=== PATIENT | female | born 1990 | race Caucasian/White ===

== ENCOUNTER → 2017-02-21 | Outpatient (REF) | payer OTHER ==
[~2017-02-21] MED LIST: BENA25CA2 PO; CIPR500S PO; DULO30CA OR; MELO15TA4 PO; PERCOCET PO; SENO8.6T10 PO; TRAZPOW OR; birth control pill OR; gabapentin OR; oxybutynin OR
[2017-02-21 13:22] LABS: BASO % 0.3 % (0.0-1.0); EOS # 0.1 K/mm3 (0.0-0.50); EOS % 2.1 % (0.0-3.0); LARGE UNSTAINED CELL # 0.1 K/mm3 (0.0-0.4); LARGE UNSTAINED CELL % 2.1 % (0.0-4.0); LYMPH # 1.8 K/mm3 (1.5-6.5); MEAN CORPUSCULAR HEMOGLOBIN 29.2 pg (27.0-33.0); MEAN CORPUSCULAR HGB CONC 32.4 g/dl (32.0-36.5); MEAN CORPUSCULAR VOLUME 90.1 fl (80.0-96.0); MONO # 0.3 K/mm3 (0.0-0.8); MONO % 6.5 % (0.0-5.0); NEUTROPHILS # 2.7 K/mm3 (1.8-7.7); NEUTROPHILS % 55.1 % (36.0-66.0); PLATELET COUNT, AUTOMATED 221 k/mm3 (150-450); RED CELL DISTRIBUTION WIDTH 12.4 % (11.5-14.5)
[2017-02-21 13:53] LABS: ALBUMIN 3.3 GM/DL (3.2-5.2); ALBUMIN/GLOBULIN RATIO 1.27 (1.00-1.93); ALKALINE PHOSPHATASE 66 U/L (45-117); ALT/SGPT 16 U/L (12-78); ANION GAP 8 MEQ/L (8-16); AST/SGOT 10 U/L (15-37); BILIRUBIN,TOTAL 0.3 MG/DL (0.2-1.0); BLOOD UREA NITROGEN 11 MG/DL (7-18); CALCIUM LEVEL 9.1 MG/DL (8.5-10.1); CARBON DIOXIDE LEVEL 27 MEQ/L (21-32); CHLORIDE LEVEL 107 MEQ/L (98-107); CHOLESTEROL LEVEL 177 MG/DL (<200); CREATININE FOR GFR 0.68 MG/DL (0.55-1.02); FREE T4 1.02 NG/DL (0.76-1.46); GLOMERULAR FILTRATION RATE > 60.0 (>60); GLUCOSE, FASTING 83 MG/DL (70-105); POTASSIUM SERUM 3.8 MEQ/L (3.5-5.1); SODIUM LEVEL 142 MEQ/L (136-145); TOTAL PROTEIN 5.9 GM/DL (6.4-8.2); TRIGLYCERIDES LEVEL 179 MG/DL (<150)
== END ==
LOC: M SFHCPLAZ 11:06
PROVIDERS: ATTEND Physician Assistant Medical
DX: M51.36 Other intervertebral disc degeneration, lumbar region (principal); F34.1 Dysthymic disorder; E66.9 Obesity, unspecified

== ENCOUNTER → 2018-07-01 | Outpatient (REF) | payer OTHER ==
[2018-07-01 15:55] LABS: HCG, SERUM QUANTITATIVE 524 MIU/ML
== END ==
LOC: M SFHCPLAZ 13:36
DX: Z3A.01 Less than 8 weeks gestation of pregnancy (principal)

== ENCOUNTER → 2021-03-26 | Outpatient (REF) | payer OTHER ==
[~2021-03-26] MED LIST changes: -DULO30CA OR; +DULO30CA9 OR; +MELO15TA28 PO; -MELO15TA4 PO
[2021-03-26 15:38] LABS: HEMATOCRIT 43.1 % (36.0-47.0); HEMOGLOBIN 13.5 g/dl (12.0-15.5); MEAN CORPUSCULAR HEMOGLOBIN 28.6 pg (27.0-33.0); MEAN CORPUSCULAR HGB CONC 31.3 g/dl (32.0-36.5); MEAN CORPUSCULAR VOLUME 91.3 fl (80.0-96.0); PLATELET COUNT, AUTOMATED 237 10^3/uL (150-450); RED BLOOD COUNT 4.72 10^6/uL (4.00-5.40); WHITE BLOOD COUNT 7.5 10^3/uL (4.0-10.0)
[2021-03-26 16:01] LABS: HEMOGLOBIN A1c 5.2 %
[2021-03-26 16:05] LABS: ALT/SGPT 20 U/L (12-78); BILIRUBIN,TOTAL 0.4 MG/DL (0.2-1.0); BLOOD UREA NITROGEN 13 MG/DL (7-18); CALCIUM LEVEL 9.3 MG/DL (8.5-10.1); CARBON DIOXIDE LEVEL 29 MEQ/L (21-32); CHLORIDE LEVEL 107 MEQ/L (98-107); CHOLESTEROL LEVEL 189 MG/DL (<200); CHOLESTEROL RISK RATIO 3.098 (<5); CREATININE FOR GFR 0.62 MG/DL (0.55-1.30); FREE T4 0.98 NG/DL (0.76-1.46); GLOMERULAR FILTRATION RATE > 60.0 (>60); GLUCOSE, FASTING 86 MG/DL (70-100); HDL CHOLESTEROL 61 MG/DL (>40); LDL CHOLESTEROL 110 MG/DL (<100); NON-HDL-C 128 MG/DL; POTASSIUM SERUM 4.3 MEQ/L (3.5-5.1); SODIUM LEVEL 139 MEQ/L (136-145); TOTAL PROTEIN 7.1 GM/DL (6.4-8.2); TRIGLYCERIDES LEVEL 88 MG/DL (<150)
== END ==
LOC: M SFHCPLAZ 12:34
PROVIDERS: ATTEND Physician Assistant Medical
DX: Z00.00 Encounter for general adult medical examination without abnormal findings (principal)

== ENCOUNTER → 2021-05-24 | Outpatient (CLI) | payer OTHER ==
[2021-05-24 15:51] LABS: BASO % 0.3 % (0.0-1.0); EOS # 0.1 10^3/uL (0.0-0.5); EOS % 0.8 % (0.0-3.0); HEMATOCRIT 43.4 % (36.0-47.0); HEMOGLOBIN 13.9 g/dl (12.0-15.5); LYMPH # 1.9 10^3/uL (1.5-5.0); LYMPH % 24.5 % (24.0-44.0); MEAN CORPUSCULAR VOLUME 90.4 fl (80.0-96.0); MONO # 0.6 10^3/uL (0.0-0.8); MONO % 7.5 % (2.0-8.0); NEUTROPHILS # 5.1 10^3/uL (1.5-8.5); NEUTROPHILS % 66.6 % (36.0-66.0); PLATELET COUNT, AUTOMATED 226 10^3/uL (150-450); WHITE BLOOD COUNT 7.6 10^3/uL (4.0-10.0)
[2021-05-24 16:24] LABS: ALBUMIN 3.9 GM/DL (3.2-5.2); ALT/SGPT 21 U/L (12-78); BILIRUBIN,TOTAL 0.5 MG/DL (0.2-1.0); BLOOD UREA NITROGEN 10 MG/DL (7-18); CALCIUM LEVEL 9.2 MG/DL (8.5-10.1); CARBON DIOXIDE LEVEL 30 MEQ/L (21-32); CHLORIDE LEVEL 108 MEQ/L (98-107); CREATININE FOR GFR 0.64 MG/DL (0.55-1.30); FERRITIN 120 NG/ML (8-252); FREE T4 0.93 NG/DL (0.76-1.46); GLOMERULAR FILTRATION RATE > 60.0 (>60); GLUCOSE, FASTING 74 MG/DL (70-100); IRON (FE) 81 UG/DL (50-170); POTASSIUM SERUM 4.7 MEQ/L (3.5-5.1); SODIUM LEVEL 143 MEQ/L (136-145); TOTAL PROTEIN 6.9 GM/DL (6.4-8.2)
[2021-05-24 16:39] LABS: TOTAL 25(OH) VITAMIN D 28.5 NG/ML (30.0-100.0)
[2021-05-24 17:12] LABS: VITAMIN B12 LEVEL 1033 PG/ML (247-911)
== END ==
LOC: M PLALAB 12:12
PROVIDERS: ATTEND Physician Assistant Medical
DX: R53.83 Other fatigue (principal)

== ENCOUNTER → 2022-07-01 | Outpatient (CLI) | payer OTHER ==
[2022-07-01 13:54] LABS: BASO % 0.5 % (0.0-1.0); EOS % 0.6 % (0.0-3.0); HEMATOCRIT 43.3 % (36.0-47.0); HEMOGLOBIN 13.7 g/dl (12.0-15.5); LYMPH # 1.8 10^3/uL (1.5-5.0); LYMPH % 27.7 % (24.0-44.0); MEAN CORPUSCULAR HEMOGLOBIN 28.3 pg (27.0-33.0); MEAN CORPUSCULAR HGB CONC 31.6 g/dl (32.0-36.5); MEAN CORPUSCULAR VOLUME 89.5 fl (80.0-96.0); MONO # 0.5 10^3/uL (0.0-0.8); MONO % 6.9 % (2.0-8.0); NEUTROPHILS # 4.1 10^3/uL (1.5-8.5); NEUTROPHILS % 63.7 % (36.0-66.0); PLATELET COUNT, AUTOMATED 204 10^3/uL (150-450); RED BLOOD COUNT 4.84 10^6/uL (4.00-5.40); WHITE BLOOD COUNT 6.5 10^3/uL (4.0-10.0)
[2022-07-01 14:49] LABS: ALBUMIN 4.2 GM/DL (3.2-5.2); ALT/SGPT 20 U/L (12-78); BILIRUBIN,TOTAL 0.6 MG/DL (0.2-1.0); BLOOD UREA NITROGEN 14 MG/DL (7-18); CALCIUM LEVEL 9.2 MG/DL (8.5-10.1); CARBON DIOXIDE LEVEL 27 MEQ/L (21-32); CHLORIDE LEVEL 105 MEQ/L (98-107); CHOLESTEROL LEVEL 203 MG/DL (<200); CHOLESTEROL RISK RATIO 4.511 (<5); CREATININE FOR GFR 0.72 MG/DL (0.55-1.30); FREE T4 0.96 NG/DL (0.76-1.46); GLOMERULAR FILTRATION RATE > 60.0 (>60); GLUCOSE, FASTING 85 MG/DL (70-100); HDL CHOLESTEROL 45 MG/DL (>40); LDL CHOLESTEROL 134 MG/DL (<100); NON-HDL-C 158 MG/DL; POTASSIUM SERUM 4.2 MEQ/L (3.5-5.1); SODIUM LEVEL 137 MEQ/L (136-145); TOTAL PROTEIN 7.2 GM/DL (6.4-8.2); TRIGLYCERIDES LEVEL 121 MG/DL (<150)
== END ==
LOC: M PLALAB 11:06
PROVIDERS: ATTEND Physician Assistant Medical
DX: M51.36 Other intervertebral disc degeneration, lumbar region (principal); F41.8 Other specified anxiety disorders

== ENCOUNTER → 2023-03-06 | Outpatient (REF) | payer OTHER | LOC: M SFHCPLAZ 15:46 | PROVIDERS: ATTEND Physician Assistant Medical | DX: F41.8 Other specified anxiety disorders (principal); Z13.220 Encounter for screening for lipoid disorders; E66.09 Other obesity due to excess calories; L72.3 Sebaceous cyst ==

== ENCOUNTER → 2023-05-15 | Outpatient (CLI) | payer OTHER ==
[2023-05-15 16:18] LABS: HCG, SERUM QUANTITATIVE 1361.6 MIU/ML (<4.2)
[2023-05-15 16:26] LABS: HCG, SERUM QUALITATIVE POSITIVE (NEGATIVE)
== END ==
LOC: M PLALAB 12:18
PROVIDERS: ATTEND Physician Assistant Medical
DX: Z32.01 Encounter for pregnancy test, result positive (principal); Z3A.01 Less than 8 weeks gestation of pregnancy

== ENCOUNTER → 2023-06-20 | Outpatient (CLI) | payer OTHER | LOC: M PLAIMG 08:29 | PROVIDERS: ATTEND Physician Assistant Medical | DX: R42 Dizziness and giddiness (principal) ==

== ENCOUNTER → 2023-12-16 | Outpatient (REF) | payer OTHER ==
[~2023-12-16] MED LIST changes: +ONDA4TAB6 PO; +OSEL75CA PO
== END ==
LOC: M LAB REF 16:39
PROVIDERS: ATTEND Obstetrics & Gynecology
DX: Z34.83 Encounter for supervision of other normal pregnancy, third trimester (principal)

== ENCOUNTER 2023-12-18 01:26 | Emergency (ER) | payer OTHER ==
[~2023-12-18] VITALS: Ht 152.4 cm; Wt 87.0 kg
[~2023-12-18 01:26] MED LIST changes: -ONDA4TAB6 PO; -OSEL75CA PO
[2023-12-18 01:37] VITALS: BP 137/77; TEMP 98.9; O2SAT 97
[2023-12-18] MEDS ORDERED: OSEL75CA PO (03:17)
[2023-12-18] MEDS ORDERED: ONDA4TAB6 PO (03:19)
== END 2023-12-18 03:41 | disposition home or self-care (01) ==
LOC: M ED 01:26
DX: J09.X9 Influenza due to identified novel influenza A virus with other manifestations (principal); K59.00 Constipation, unspecified; Z91.040 Latex allergy status; Z91.048 Other nonmedicinal substance allergy status; Z79.899 Other long term (current) drug therapy; Z79.2 Long term (current) use of antibiotics

== ENCOUNTER 2024-01-20 18:10 | Emergency (ER) | payer OTHER ==
[~2024-01-20] VITALS: Ht 167.6 cm; Wt 102.4 kg
[~2024-01-20 18:10] MED LIST changes: +ONDA4TAB6 PO; +OSEL75CA PO
[2024-01-20 19:37] VITALS: BP 146/87; TEMP 98.7; O2SAT 100
== END 2024-01-20 19:38 | disposition home or self-care (01) ==
LOC: M ED 18:10
DX: O99.893 Other specified diseases and conditions complicating puerperium (principal); M25.531 Pain in right wrist; O99.335 Smoking (tobacco) complicating the puerperium; F17.200 Nicotine dependence, unspecified, uncomplicated; Z91.040 Latex allergy status; Z91.048 Other nonmedicinal substance allergy status; Z79.899 Other long term (current) drug therapy

== ENCOUNTER → 2024-06-01 | Outpatient (REF) | payer OTHER ==
[~2024-06-01] MED LIST changes: +ONDA-282 PO; -ONDA4TAB6 PO
== END ==
LOC: M SFHCDERM 17:28
PROVIDERS: ATTEND Nurse Practitioner Family
DX: L72.0 Epidermal cyst (principal); D18.01 Hemangioma of skin and subcutaneous tissue

== ENCOUNTER → 2025-01-03 | Outpatient (CLI) | payer OTHER ==
[2025-01-03 11:17] LABS: BASO % 0.6 % (0.0-1.0); EOS # 0.3 10^3/uL (0.0-0.5); EOS % 3.7 % (0.0-3.0); HEMATOCRIT 44.3 % (36.0-47.0); HEMOGLOBIN 13.8 g/dl (12.0-15.5); LYMPH # 2.4 10^3/uL (1.5-5.0); LYMPH % 34.4 % (24.0-44.0); MEAN CORPUSCULAR HGB CONC 31.2 g/dl (32.0-36.5); MEAN CORPUSCULAR VOLUME 89.9 fl (80.0-96.0); MONO # 0.4 10^3/uL (0.0-0.8); MONO % 5.7 % (2.0-8.0); NEUTROPHILS # 3.9 10^3/uL (1.5-8.5); NEUTROPHILS % 55.3 % (36.0-66.0); PLATELET COUNT, AUTOMATED 249 10^3/uL (150-450); RED BLOOD COUNT 4.93 10^6/uL (4.00-5.40); WHITE BLOOD COUNT 7.1 10^3/uL (4.0-10.0)
[2025-01-03 11:45] LABS: FREE T4 1.19 NG/DL (0.89-1.76)
[2025-01-03 11:46] LABS: THYROID STIMULATING HORMONE 4.137 uIU/ML (0.55-4.78)
[2025-01-03 11:49] LABS: HEMOGLOBIN A1c 5.1 % (4.0-6.0)
[2025-01-03 11:54] LABS: ALBUMIN 4.1 G/DL (3.2-5.2); ALKALINE PHOSPHATASE 122 U/L (35-104); ALT/SGPT 25 U/L (7.0-40); AST/SGOT 18 U/L (<34); BILIRUBIN,TOTAL 0.5 MG/DL (0.3-1.2); BLOOD UREA NITROGEN 10 MG/DL (9-23); CALCIUM LEVEL 9.9 MG/DL (8.5-10.1); CARBON DIOXIDE LEVEL 27 MMOL/L (20-31); CHLORIDE LEVEL 105 MMOL/L (98-107); CHOLESTEROL LEVEL 195 MG/DL (<200); CHOLESTEROL RISK RATIO 3.77 (<5); CREATININE FOR GFR 0.81 MG/DL (0.55-1.30); GLOMERULAR FILTRATION RATE > 60.0 (>60); GLUCOSE, FASTING 106 MG/DL (60-100); HDL CHOLESTEROL 51.7 MG/DL (>40); LDL CHOLESTEROL 120.7 MG/DL (<100); NON-HDL-C 143.3 MG/DL; SODIUM LEVEL 144 MMOL/L (136-145); TOTAL PROTEIN 7.3 G/DL (5.7-8.2); TRIGLYCERIDES LEVEL 113 MG/DL (<150)
== END ==
LOC: M PLALAB 08:12
PROVIDERS: ATTEND Physician Assistant Medical
DX: Z12.11 Encounter for screening for malignant neoplasm of colon (principal)

== ENCOUNTER → 2025-03-10 | Outpatient (REF) | payer OTHER ==
[2025-03-10 11:22] LABS: FREE T4 1.18 NG/DL (0.89-1.76)
[2025-03-10 11:23] LABS: THYROID STIMULATING HORMONE 1.983 uIU/ML (0.55-4.78)
== END ==
LOC: M LABWUC 10:17
PROVIDERS: ATTEND Physician Assistant Medical
DX: E03.9 Hypothyroidism, unspecified (principal)

== ENCOUNTER → 2025-08-12 | Outpatient (CLI) | payer OTHER ==
[2025-08-12 14:38] LABS: ALT/SGPT 18 U/L (7.0-40); AST/SGOT 17 U/L (<34); CALCIUM LEVEL 9.1 MG/DL (8.5-10.1); CARBON DIOXIDE LEVEL 28 MMOL/L (20-31); CHLORIDE LEVEL 101 MMOL/L (98-107); CREATININE FOR GFR 0.76 MG/DL (0.55-1.30); FREE T4 1.20 NG/DL (0.89-1.76); GLOMERULAR FILTRATION RATE > 90.0 (>60); POTASSIUM SERUM 4.4 MMOL/L (3.5-5.1); SODIUM LEVEL 139 MMOL/L (136-145)
== END ==
LOC: M PLALAB 09:37
PROVIDERS: ATTEND Physician Assistant Medical
DX: F41.8 Other specified anxiety disorders (principal); F34.1 Dysthymic disorder